=== PATIENT | male | born 1950 | race Caucasian/White ===

== ENCOUNTER 2017-10-13 09:26 | Day surgery (SDC) | payer OTHER, BC ==
[2017-10-11 13:56] VITALS: BMI 25.4
[2017-10-13] MEDS ORDERED: BUPIVACAINE HCL/PF 2.5 MG/ML - 30 ML VIAL IJ ONE (11:36)
[2017-10-13] MEDS ORDERED: MIDAZOLAM HCL 2 MG/2 ML SINGLE DOSE VIAL ONE (12:01)
[2017-10-13] MEDS ORDERED: PROPOFOL 20 ML ONE ×2 (12:09→12:49)
[2017-10-13] MEDS ORDERED: LIDOCAINE HCL 2% 100 MG/5 ML DISP.SYRIN ONE (12:11)
[2017-10-13] MEDS ORDERED: ONDANSETRON 4 MG/2 ML VIAL ONE (12:16)
[2017-10-13] MEDS ORDERED: DEXAMETHASONE SOD PHOSPHATE 4 MG/1 ML VIAL ONE (12:16)
[2017-10-13] MEDS ORDERED: HYDROmorphone HCL/PF 1 MG/ML VIAL (FOR PYXIS CHARGING ONLY) ONE ×2 (12:21→12:27)
[2017-10-13] MEDS ORDERED: ceFAZolin SODIUM 1 GM VIAL ONE (12:25)
[2017-10-13] MEDS ORDERED: THROMBIN (BOVINE) 5,000 UNIT VIAL TP ONE ×2 (12:42→12:45)
[2017-10-13] MEDS ORDERED: GELATIN, ABSORBABLE 100 EACH SPONGE TP ONE (12:42)
[2017-10-13] MEDS ORDERED: ONDANSETRON 4 MG/2 ML VIAL IVPUSH PRN (13:05)
[2017-10-13] MEDS ORDERED: oxyCODONE HCL 5 MG TABLET PO PRN (13:05)
[2017-10-13] MEDS ORDERED: LACTATED RINGERS SOLUTION 1,000 ML IV SCH (13:15)
[2017-10-13 13:57] VITALS: TEMP 97.8
[2017-10-13 14:51] VITALS: BP 116/76; PULSE 78
--- NOTE | 2017-10-13 22:58 | OP ---
DATE OF OPERATION: 10/13/2017 SURGEON: Petar Mares M.D. HOUSING MANAGEMENT OFFICER: Sandip Garcia PREOPERATIVE DIAGNOSIS: Right arm mass/hematoma, complex. POSTOPERATIVE DIAGNOSIS: Right arm mass/hematoma, complex. PROCEDURE: Irrigation and debridement of hematoma and complex mass right upper arm. FINDINGS: 1. Complex hematoma, right arm. 2. Thickened scar tissue between anterior biceps and brachialis. DESCRIPTION OF PROCEDURE: Informed consent was obtained . Right upper extremity was prepped and draped in sterile fashion. Tourniquet was placed on the upper arm but not inflated. Horizontal incision was made at the area of the anterior elbow crease. The fascia was incised, and the blunt tenotomy scissors exposed the area between the biceps and the brachialis. hematoma was evacuated through pressure. Multiple complex areas of tissue consistent with hematopoietic clot were removed as well. A bulb syringe irrigation was used greater than 2 L throughout the area. This was then packed with a iodoform gauze as well as absorbable packing material to limit bleeding. Two 3-0 Prolenes were placed on the anterior incision, and a sterile dressing was placed. A second Kike bandage was placed, and the pressure dressing removed 40 minutes after the injury; this was to provide 50% the maximum pressure to decrease the space and prevent postoperative bleeding. ADDENDUM: Postoperatively, patient's secondary Kike was removed, was found to be neurovascularly intact distally the whole time with good pulses, good blood flow by pulse oximetry. PETAR MARES M.D. [id number]
--- NOTE | 2017-10-18 14:54 | PATH ---
Surgical Pathology Report Patient Name: BRANDON ÁLVAREZ Med. Rec. #: [id number] /Age/Gender: 1950 (Age: 67) / M Account: [id number] Location: [facility] AM[facility] Taken: 10/13/2017 Received: 10/13/2017 Reported: 10/18/2017 Physicians: Petar Razo M.D. Specimen(s) Received RIG ARM HEMATOMA Clinical History Right biceps hematoma of soft tissue Final Diagnosis HEMATOMA, RIGHT ARM, INCISION AND DRAINAGE: HEMATOMA. Electronically Signed Idalmis Blankenship M.D. Gross Description Received in formalin labeled "right arm hematoma," is a 1.4 x 1.0 x 0.3 cm red-brown blood clot. The specimen is submitted in toto in one cassette. /10/16/201710/16/2017
== END 2017-10-13 14:50 | disposition home or self-care (01) ==
LOC: FASU 09:26
PROVIDERS: ATTEND Orthopaedic Surgery
PROC: 0J9D0ZZ Drainage of Right Upper Arm Subcutaneous Tissue and Fascia, Open Approach (ICD-10-PCS; principal; 2017-10-13 12:24)
DX: M79.81 Nontraumatic hematoma of soft tissue (principal); R22.31 Localized swelling, mass and lump, right upper limb
CPT/HCPCS: 87070; 87075; 87205; 88302-TC; 94760

== ENCOUNTER 2019-04-05 14:20 | Observation (INO) | payer OTHER, BC ==
[2019-04-05 14:51] VITALS: BMI 21.9
--- NOTE | 2019-04-05 15:30 | PDOC ---
History of Present Illness - General Chief Complaint: Lightheaded Stated Complaint: DIZZINESS Time Seen by Provider: 04/05/19 14:33 History Source: Patient, Spouse - History of Present Illness Initial Comments: 04/05/19 15:28 68yM w PMHx R arm sarcoma s/p amputation, lung metastasis off chemotherapy, HTN presenting w perioral cyanosis and tremors. 10am this morning took 0.25mL hydromorphone. 10:30a complained of leg weakness, laid on couch for a nap. No head trauma/fall. 11:30a noted pt having perioral cyanosis, 10sec episode of mouth, trunk, and R arm tremors. No tongue biting. Pt was partially conscious during shaking episode. EMS measured SBP as 70 going up to 90 en route to ED. Currently in ED pt still has mouth and R arm tremors. is health care proxy. Pt stopped chemo yesterday, started pallative care today. Denies fever, headache, nausea/vomiting, SOB, chest/AB pain, urinary/bowel mvmt changes. Pt is DNI, no CVC, only short resuscitation. is health care proxy. 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, lung and arm) Cardiac Disorders: No CVA: No COPD: No CHF: No Dementia: No Diabetes: No GI Disorders: Yes (HIATAL HERNIA) Disorders: Yes (BPH) HTN: Yes Hypercholesterolemia: No Liver Disease: No Seizures: No Thyroid Disease: No - Surgical History Abdominal Surgery: No Appendectomy: No Cardiac Surgery: No Cholecystectomy: No Lung Surgery: No Neurologic Surgery: No Orthopedic Surgery: No - Psycho Social/Smoking Cessation Hx Smoking History: Never smoked Have you smoked in the past 12 months: No Hx Alcohol Use: Yes (SOCIALLY) Drug/Substance Use Hx: No Substance Use Type: Alcohol Hx Substance Use Treatment: No Review of Systems - Review of Systems Constitutional: Yes: Malaise. No: Chills, Fever HEENTM: No: Recent change in vision, Nose Pain, Throat Pain Respiratory: No: Cough, Shortness of Breath Cardiac (ROS): No: Chest Pain, Palpitations, Chest Tightness ABD/GI: No: Abdominal Distended, Constipated, Diarrhea, Nausea, Vomiting : No: Burning, Dysuria, Frequency Musculoskeletal: No: Back Pain, Muscle Pain Integumentary: No: Bruising, Dryness, Erythema Neurological: Yes: Weakness. No: Headache, Seizure, Tingling Psychiatric: No: Anxiety, Depression Endocrine: No: Excessive Sweating, Flushing, Intolerance to Cold, Intolerance to Heat Hematologic/Lymphatic: No: Anemia, Blood Clots *Physical Exam - Vital Signs Last Vital Signs Temp Pulse Resp BP Pulse Ox 97.7 F 77 16 112/72 100 04/05/19 14:25 04/05/19 14:25 04/05/19 14:25 04/05/19 14:25 04/05/19 14:25 - Physical Exam General Appearance: Yes: Nourished, Appropriately Dressed. No: Apparent Distress HEENT: positive: EOMI, Normal Voice, Hearing Grossly Normal. negative: AMELIA ( 2mm stephane constricted pupils), Scleral Icterus (R), Scleral Icterus (L), Nasal Congestion, Rhinorrhea Respiratory/Chest: positive: Decreased Breath Sounds (R>L). negative: Chest Tender, Respiratory Distress, Accessory Muscle Use, Crackles, Rales, Rhonchi, Stridor, Wheezing Cardiovascular: positive: Regular Rhythm, Regular Rate, S1, S2. negative: Edema , Murmur Gastrointestinal/Abdominal: positive: Normal Bowel Sounds, Flat, Soft. negative : Tender, Organomegaly Extremity: positive: Other (Above elbow R amputation) Integumentary: positive: Pale, Other (perioral cyanosis). negative: Rash, Ecchymosis Neurologic: positive: turbine mechanic II-XII NML intact, Fully Oriented, Alert, Normal Mood/ Affect, Normal Response, Motor Strength 5/5 (4/5 stephane dorsi/plantaflexion), Respond to painful stimul, Responsive. negative: Facial Droop, Numbness, Sensory Deficit, Confused, Disoriented ED Treatment Course - LABORATORY CBC & Chemistry Diagram: 04/05/19 15:50 04/05/19 15:50 - RADIOLOGY Radiology Studies Ordered: Category Date Time Status HEAD CT WITHOUT CONTRAST [CT] Stat CT Scan 04/05/19 15:22 Ordered Medical Decision Making - Medical Decision Making 04/05/19 15:52 CBC CMP trop cardiac monitoring EKG NSR, HR 68, QTc 435, no ST changes Head CT shows no acute pathology, moderate periventricular and subcortical white matter, stephane mucous 1L NS plt 125 --- 68yM w PMHx R arm sarcoma s/p amputation, lung metastasis off chemotherapy, HTN presenting w perioral cyanosis, tremors, syncope likely d/t opioid overdose ( miosis, weakness, perioral cyanosis after hydromorphone) vs medication side reaction. Low concern for ACS (neg trop, NSR EKG) vs CVA (no focal neuro deficits, no acute pathology on HCT) vs seizure (pt partially conscious during tremor episode, questionable post-ictal). O2sat wnl on RA. Given 1L NS. Admitted to tele/obvs Dr Ware for syncope possibly 2/2 opioid overdose Discharge - Discharge Information Problems reviewed: Yes Clinical Impression/Diagnosis: Opioid overdose Qualifiers: Encounter type: initial encounter Injury intent: accidental or unintentional Qualified Code(s): T40.2X1A - Poisoning by other opioids, accidental ( unintentional), initial encounter Syncope Qualifiers: Syncope type: unspecified Qualified Code(s): R55 - Syncope and collapse Condition: Stable - Follow up/Referral Referrals: James Longo [Primary Care Provider] - - Patient Discharge Instructions - Post Discharge Activity
[2019-04-05 16:27] LABS: BASO % 0.2 % (0-2.0); EOS % 0.8 % (0-4.5); HEMATOCRIT 42.9 % (35.4-49); LYMPH % 9.3 % (8-40); MCH 35.9 pg (25.7-33.7); MEAN CELL VOLUME 102.5 fl (80-96); MEAN PLT VOLUME 8.5 fl (7.5-11.1); MONO % 10.6 % (3.8-10.2); NEUT % 79.1 % (42.8-82.8); PLATELET COUNT 125 K/MM3 (134-434); RBC 4.18 M/mm3 (4.00-5.60); WHITE BLOOD COUNT 6.1 K/mm3 (4.0-10.0)
[2019-04-05 16:57] LABS: ALK PHOS 83 U/L (45-117); ANION GAP 7 MMOL/L (8-16); BILIRUBIN,TOTAL 0.9 mg/dL (0.2-1); BLOOD UREA NITROGEN 22.8 mg/dL (7-18); CALCIUM 8.9 mg/dL (8.5-10.1); CHLORIDE 102 mmol/L (98-107); CO2 29 mmol/L (21-32); CREATININE 0.9 mg/dL (0.55-1.3); GLUCOSE,RANDOM 100 mg/dL (74-106); MAGNESIUM 2.1 mg/dL (1.8-2.4); POTASSIUM 4.1 mmol/L (3.5-5.1); SGOT/AST 53 U/L (15-37); SGPT/ALT 50 U/L (13-61); SODIUM 138 mmol/L (136-145); TOT PROT 6.8 g/dl (6.4-8.2)
[2019-04-05] MEDS ORDERED: SODIUM CHLORIDE 0.9% 500 ML INFUS.BAG IV ONE (16:57)
--- NOTE | 2019-04-05 17:04 | PDOC ---
Documentation entered by Abdirahman Morrell SCRIBE, acting as scribe for Aleksey Max MD. Aleksey Max MD: This documentation has been prepared by the Petros leon Xhesika, SCRIBE, under my direction and personally reviewed by me in its entirety. I confirm that the documentation accurately reflects all work, treatment, procedures, and medical decision making performed by me. Attending Attestation - Resident Resident Name: KevinLokesh - ED Attending Attestation I have performed the following: I have examined & evaluated the patient, The case was reviewed & discussed with the resident, I agree w/resident's findings & plan, Exceptions are as noted - HPI HPI: 04/05/19 16:36 The patient is a 68 old male, with a significant past medical history of R arm sarcoma s/p amputation, lung metastasis off chemotherapy and HTN who presents to the ED with shaking activity and tremors [employer]. at bedside notes the patient took 0.25mL hydromorphone this morning and shortly after the patient was in the bathroom brushing his teeth when he felt sudden onset of leg weakness , lost his balance and started shifting to one side. notes she sat the patient on the couch, patient fell asleep, and while sleeping, his skin color turned white, his blood pressure dropped and his R arm started trembling. notes she called pts PCP at [facility] and was told the patient is having a reaction to his medication and to decrease his medication dose. Pt notes he is still endorsing some R arm trembling and mouth quivering. The patient denies chest pain, shortness of breath, headache and dizziness. Denies fever, chills, cough, nausea, vomiting, diarrhea and constipation. Denies dysuria, frequency, urgency and hematuria. Allergies:, NKDA Social Hx: Denies current smoking, drinking, or other substance usage. - Physicial Exam PE: 04/05/19 16:38 Vitals: Triage Vital signs reviewed General Appearance: no acute distress, well nourished well developed, Head: Atraumatic, normocephalic Throat: Posterior oropharynx without erythema, mucous membranes moist. + lip twitching. Neck: Supple;No Nuchal rigidity Chest Wall: Nontender Cardiac: +systolic murmur. Regular rate and rhythm, no rubs, no gallops, Lungs: Clear to auscultation bilateral, good air movement bilaterally, Extremities: + R arm amputation. no cyanosis, clubbing, or edema Skin: Warm and dry, no rashes or lesions, no petechiae - Medical Decision Making 04/05/19 17:50 History and examination consistent with syncope versus seizure Possible medication adverse reaction complicated by syncopal episode but given twitching patient will require observation overnight with neurology consultation for further management. Heart Score/ECG Review - ECG Impressions Comment:: 04/05/19 17:51 EKG performed at 1433 demonstrates normal sinus rhythm normal axis ventricular rate [address] elevations no T wave inversions incomplete right bundle branch block Interpreted by me.
--- NOTE | 2019-04-05 19:54 | HP ---
CHIEF COMPLAINT: presyncope/leg weakness PCP: Dr. Rick (palliative care) - [phone] HISTORY OF PRESENT ILLNESS: 68M w/ pmhx of R arm sarcoma (s/p RUE amputation) with lung mets (previously treated with RT, oral CT - last dose yesterday), HTN, presents to the ED for b/ l leg weakness. at bedside during encounter. Pt has had a year long hx of cancer treatment after which his most recent oral chemotherapy caused him to feel very weak and sick. As a result, he decided yesterday to be placed on palliative care and was given a new medication regimen today. Pt was prescribed Hydromorphone 0.5 mL, but took 0.25 ml. 2 hours later, while brushing his teeth , pt started feeling b/l leg weakness and tremors, R > L, and became too weak to hold himself up. was present during entire episode and was able to hold pt up. Pt did admit to some dizziness, but denied associated nausea/vomiting, chest pain, sob, loss of consciousness, seizure activity or post-ictal state. Denies any fall. Pt also has R sided facial flushing. ER course was notable for: (1) VS wnl, BUN 22.8, trops neg x1 (2) NS x1L (3) EKG showed NSR, no ST-T changes, flattening of T waves Recent Travel: Denies PAST MEDICAL HISTORY: R arm sarcoma w/ lung mets HTN PAST SURGICAL HISTORY: RUE amputation radical prostatectomy Family History: Father- Bladder ca Mother- HTN No hx of stroke Social History: Smoking: Denies Alcohol: Social drinker Drugs: Denies Retired, former recreational therapist Allergies No Known Drug Allergies Allergy (Verified 04/05/19 14:51) HOME MEDICATIONS: Home Medications Medication Instructions Recorded Lisinopril/Hydrochlorothiazide 1 each PO DAILY 10/11/17 [Lisinopril-Hctz 10-12.5 mg Tab] Gabapentin 300 mg PO BID 04/05/19 HYDROmorphone HCL [Hydromorphone 0.5 ml PO QID 04/05/19 HCl] Olanzapine [Olanzapine Odt] 5 mg PO BID 04/05/19 Sennosides [Senna] 8.6 mg PO HS 04/05/19 clonazePAM [Klonopin -] 0.5 mg PO HS 04/05/19 REVIEW OF SYSTEMS CONSTITUTIONAL: Absent: fever, chills, diaphoresis, generalized weakness, malaise, loss of appetite, weight change HEENT: R sided facial flushing Absent: rhinorrhea, nasal congestion, throat pain, throat swelling, difficulty swallowing, mouth swelling, ear pain, eye pain, visual changes CARDIOVASCULAR: Absent: chest pain, syncope, palpitations, irregular heart rate, lightheadedness , peripheral edema RESPIRATORY: Absent: cough, shortness of breath, dyspnea with exertion, orthopnea, wheezing, stridor, hemoptysis GASTROINTESTINAL: Absent: abdominal pain, abdominal distension, nausea, vomiting, diarrhea, constipation, melena, hematochezia GENITOURINARY: difficulty urinating Absent: dysuria, frequency, urgency, hesitancy, hematuria, flank pain, genital pain MUSCULOSKELETAL: b/l LE weakness Absent: myalgia, arthralgia, joint swelling, back pain, neck pain SKIN: Absent: rash, itching, pallor HEMATOLOGIC/IMMUNOLOGIC: Absent: easy bleeding, easy bruising, lymphadenopathy, frequent infections ENDOCRINE: Absent: unexplained weight gain, unexplained weight loss, heat intolerance, cold intolerance NEUROLOGIC: dizziness Absent: headache, focal weakness or paresthesias, dizziness, unsteady gait, seizure, mental status changes, bladder or bowel incontinence PSYCHIATRIC: Absent: anxiety, depression, suicidal or homicidal ideation, hallucinations. PHYSICAL EXAMINATION Vital Signs - 24 hr 04/05/19 14:25 Temperature 97.7 F Pulse Rate 77 Respiratory 16 Rate Blood Pressure 112/72 O2 Sat by Pulse 100 Oximetry (%) GENERAL: Pleasant, male. NAD. AAOx3. HEENT: AT/NC. EOMI. No facial droop. R sided facial flushing, no warmth. Airway patent. NECK: Normal range of motion, supple without lymphadenopathy, JVD, or masses. LUNGS: CTA B/L. No wheezes/rales noted. Symmetric chest rise. HEART: RRR. Normal S1, S2. No murmurs noted. ABDOMEN: Soft, nontender, not distended, normoactive bowel sounds, no guarding, no rebound, no masses. No hepatomegaly or splenomegaly. MUSCULOSKELETAL: 5/5 muscle strength in LUE and b/l LE UPPER EXTREMITIES: R arm amputation. 2+ L sided radial pulse. Uses 1 crutch to ambulate. LOWER EXTREMITIES: 2+ pulses, warm, well-perfused. No calf tenderness. No peripheral edema. 5/5 muscle strength in b/l hip and knee flexion and extension. NEUROLOGICAL: Cranial nerves II-XII intact. Normal speech. Answers all questions appropriately. PSYCHIATRIC: Cooperative. Good eye contact. Appropriate mood and affect. SKIN: Warm, dry, normal turgor, no rashes or lesions noted, normal capillary refill. Laboratory Results - last 24 hr 04/05/19 04/05/19 15:50 15:50 WBC 6.1 RBC 4.18 Hgb 15.0 Hct 42.9 MCV 102.5 H MCH 35.9 H MCHC 35.0 RDW 18.0 H Plt Count 125 L MPV 8.5 Absolute Neuts (auto) 4.8 Neutrophils % 79.1 Lymphocytes % 9.3 Monocytes % 10.6 H Eosinophils % 0.8 Basophils % 0.2 Nucleated RBC % 0 Sodium 138 Potassium 4.1 Chloride 102 Carbon Dioxide 29 Anion Gap 7 L BUN 22.8 H Creatinine 0.9 Est GFR (CKD-EPI)AfAm 102.79 Est GFR (CKD-EPI)NonAf 88.69 Random Glucose 100 Calcium 8.9 Magnesium 2.1 Total Bilirubin 0.9 AST 53 H ALT 50 Alkaline Phosphatase 83 Creatine Kinase 128 Troponin I < 0.02 Total Protein 6.8 Albumin 4.0 ASSESSMENT/PLAN: 68M w/ pmhx of R arm sarcoma (s/p RUE amputation) with lung mets (previously treated with RT, oral CT - last dose yesterday), HTN, presents to the ED for b/ l leg weakness. #B/L LE weakness; 2/2 adverse drug rxn vs. near syncope vs. ? seizure Imaging Head CT showed no acute IC pathology. Mod to marked periventricular and subcortical white matter hypodensity; may be advanced microvascular ischemic gliosis or nonspecific white matter injury, probably chronic. Small amount of fluid/mucosal thickening seen within mastoid air cells b/l. -Pt's symptoms may likely be due to recent administration of Hydromorphone as known effects include facial flushing as well as FILE SYSTEM INSTALLER disturbances (including equilibrium disturbance, abnormal gait, etc). Unlikely syncope as pt did not endorse loss of consciousness, however will need to rule out possible cardiac etiology for presyncopal episode. Pt also admits unexplained worsening tremors in his lower extremities R > L, so will r/o focal seizure however pt has no hx of seizure or other associated symptoms (tongue biting, urinary/bowel incontinence, etc). -Will hold all opioids for now -Orthostatics ordered -Echo ordered -Fall/seizure precautions -PT eval -Neuro consulted for possible seizure -Avoid hydromorphone; Will need close outpatient follow up with palliative care physician to discuss different palliative care regimen -Tylenol PRN for pain #Mild Thrombocytopenia; ? side effect of recent chemotherapy. Will order abd u/ s to r/o splenomegaly. #HTN; Currently normotensive. Hold home meds (Lisinopril/HCTZ) for now in setting of near syncopal episode. #Prophylaxis DVT: SQH #FEN -(gentle IV hydration) NS @ 50 -recheck lytes in AM -sodium-controlled diet Code status -DNI. Per ED, it was explained to pt and pt's (HCP) regarding futility of using resuscitative measures without intubation, however agreed to keep pt DNI with "soft resuscitative measures." Dispo -admit to tele obs Visit type - Emergency Visit Emergency Visit: Yes ED Registration Date: 04/05/19 Care time: The patient presented to the Emergency Department on the above date and was hospitalized for further evaluation of their emergent condition. - New Patient This patient is new to me today: Yes Date on this admission: 04/06/19 - Critical Care Critical Care patient: No ATTENDING PHYSICIAN STATEMENT I saw and evaluated the patient. I reviewed the resident's note and discussed the case with the resident. I agree with the resident's findings and plan as documented. SUBJECTIVE: OBJECTIVE: ASSESSMENT AND PLAN:
--- NOTE | 2019-04-05 20:20 | PN ---
Teaching Attending Note Name of Resident: Faustina Murray ATTENDING PHYSICIAN STATEMENT I saw and evaluated the patient. I reviewed the resident's note and discussed the case with the resident. I agree with the resident's findings and plan as documented. SUBJECTIVE: 68 old male, with a significant past medical history of R arm sarcoma s/p amputation, lung metastasis off chemotherapy and HTN Presents complaining of shaking activity and tremors. at bedside stated they took 0.25 mg of hydromorphone on 04/05/2019 in the morning and shortly after patient was experiencing bilateral lower extremity weakness, loss of balance,Tremors in left face and left upper extremity possible syncope episode. Lasted only several seconds and was witnessed by his . No history of seizures. OBJECTIVE: Last Vital Signs Temp Pulse Resp BP Pulse Ox 97.7 F 86 18 106/78 94 L 04/05/19 14:25 04/05/19 20:35 04/05/19 20:35 04/05/19 20:35 04/05/19 20:35 GENERAL: Well developed, well nourished. Awake and alert. No acute distress. HEENT: Normocephalic, atraumatic. PERRLA, EOMI. No conjunctival pallor. Sclera are non- icteric. Moist mucous membranes. Oropharynx is clear. NECK: Supple. Full ROM. No JVD. Carotid pulses 2+ and symmetric, without bruits. No thyromegaly. No lymphadenopathy. CARDIOVASCULAR: Regular rate and rhythm. No murmurs, rubs, or gallops. Distal pulses are 2+ and symmetric. PULMONARY: No evidence of respiratory distress. Lungs clear to auscultation bilaterally. No wheezing, rales or rhonchi. ABDOMINAL: Soft. Non-tender. Non-distended. No rebound or guarding. No organomegaly. Normoactive bowel sounds. MUSCULOSKELETAL Normal range of motion at all joints. No bony deformities or tenderness. No CVA tenderness. EXTREMITIES: Right arm status post amputation at mid shoulder level SKIN: Warm and dry. Normal capillary refill. No rashes. No jaundice. PSYCHIATRIC: Cooperative. Good eye contact. Appropriate mood and affect. Abnormal Lab Results 04/05/19 04/05/19 15:50 15:50 MCV 102.5 H MCH 35.9 H RDW 18.0 H Plt Count 125 L Monocytes % 10.6 H Anion Gap 7 L BUN 22.8 H AST 53 H Imaging studies reviewed Head CT reviewed and was negative for any acute intracranial pathology ASSESSMENT AND PLAN: 68-year-old male with possible adverse drug reaction to hydromorphone versus syncope versus Seizure episode. History of tremors and "shaking activity" suspicious for possible seizure activity. Telemetry abs Check orthostatics Monitor vital signs closely Echo Neurology evaluation for possible seizure Avoid hydromorphone Fall precautions and bedrest Physical therapy evaluation DVT prophylaxis with heparin subcutaneously #Mild thrombocytopenia Ultrasound of spleen to rule out splenomegaly Monitor CBC closely
[2019-04-05] MEDS ORDERED: ACETAMINOPHEN 325 MG TABLET (FP) PO PRN (23:31)
[2019-04-06] MEDS: HEPARIN NA (PORCINE) 5,000 UNITS/ML 1ML VIAL SQ SCH ×4 (00:38→21:30)
[2019-04-06] MEDS: SODIUM CHLORIDE 1,000 ML IV SCH ×2 (03:12→13:29)
[2019-04-06] MEDS ORDERED: MELATONIN 5 MG TABLETS ONE (03:14)
[2019-04-06 06:37] LABS: HEMATOCRIT 36.8 % (35.4-49); MCH 35.9 pg (25.7-33.7); MCHC 35.4 g/dl (32.0-35.9); MEAN CELL VOLUME 101.3 fl (80-96); MEAN PLT VOLUME 7.7 fl (7.5-11.1); PLATELET COUNT 82 K/MM3 (134-434); RBC 3.63 M/mm3 (4.00-5.60); RDW 17.8 % (11.9-15.9); WHITE BLOOD COUNT 3.7 K/mm3 (4.0-10.0)
[2019-04-06 06:54] LABS: ALBUMIN 3.1 g/dl (3.4-5.0); BILIRUBIN,TOTAL 0.7 mg/dL (0.2-1); CALCIUM 7.8 mg/dL (8.5-10.1); CREATININE 0.8 mg/dL (0.55-1.3); POTASSIUM 3.1 mmol/L (3.5-5.1); TOT PROT 5.5 g/dl (6.4-8.2)
[2019-04-06] MEDS ORDERED: ENOXAPARIN NA (PORCINE) 40 MG/0.4 ML DISP.SYRIN SQ SCH (10:00)
--- NOTE | 2019-04-06 10:22 | EKG ---
Test Reason : Blood Pressure : / mmHG Vent. Rate : 068 BPM Atrial Rate : 068 BPM P-R Int : 142 ms QRS Dur : 084 ms QT Int : 410 ms P-R-T Axes : 050 014 012 degrees QTc Int : 435 ms NORMAL SINUS RHYTHM NONSPECIFIC T WAVE ABNORMALITY ABNORMAL ECG NO PREVIOUS ECGS AVAILABLE Confirmed by MILENA FELICIANO MD ([id number]) on 04/06/2019 10:21:50 AM Referred By: Confirmed By:MILENA FELICIANO MD
[2019-04-06] MEDS: POTASSIUM CHLORIDE TABS 20 MEQ TABLET.ER (FP) PO SCH ×2 (11:06→21:27)
--- NOTE | 2019-04-06 11:09 | CONSULT ---
Consult - text type - Consultation Consultation Note: [facility] *LIVE* Neurology CHIEF COMPLAINT: presyncope/leg weakness PCP: Dr. 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 at bedside during encounter. Pt has had a year long hx of cancer treatment after which his most recent oral chemotherapy caused him to feel very weak and sick. As a result, he decided yesterday to be placed on palliative care and was given a new medication regimen today. Pt was prescribed Hydromorphone 0.5 mL, but took 0.25 ml. 2 hours later, while brushing his teeth, pt started feeling b/l leg weakness and tremors, R > L, and became too weak to hold himself up. was present during entire episode and was able to hold pt up. Pt did admit to some dizziness, but denied associated nausea/vomiting, chest pain, sob, loss of consciousness, seizure activity or post-ictal state. Denies any fall. Pt also has R sided facial flushing. Patient BUN slightly elevated 22.8, EKG normal sinus rhythm. Head CT completed with moderate to marked periventricular and subcortical white matter and small amount of fluid mucosal thickening within the mastoid air cells bilaterally. Patient without focal deficits and therefore discontinued MRI brain. Discussed with at bedside and hospitalist. EEG may be of benefit but not available on weekend, therefore provided office information to expedite completion as outpatient. Neurologically appears at baseline and hydromorphone first use likely etiology to presentation. Recent Travel: Denies PAST MEDICAL HISTORY: R arm sarcoma w/ lung mets HTN PAST SURGICAL HISTORY: RUE amputation radical prostatectomy Family History: Father- Bladder ca Mother- HTN No hx of stroke Social History: Smoking: Denies Alcohol: Social drinker Drugs: Denies Retired, former recreational therapist Allergies No Known Drug Allergies Allergy (Verified 04/05/19 14:51) HOME MEDICATIONS: Ambulatory Orders Lisinopril/Hydrochlorothiazide [Lisinopril-Hctz 10-12.5 mg Tab] 1 each PO DAILY 10/11/17 Gabapentin 300 mg PO BID 04/05/19 HYDROmorphone HCL [Hydromorphone HCl] 0.5 ml PO QID 04/05/19 Olanzapine [Olanzapine Odt] 5 mg PO BID 04/05/19 Sennosides [Senna] 8.6 mg PO 04/05/19 clonazePAM [Klonopin -] 0.5 mg PO 04/05/19 Active Medications Acetaminophen (Tylenol -) 650 mg PO Q6H PRN PRN Reason: PAIN LEVEL 1-5 Heparin Sodium (Porcine) (Heparin -) 5,000 unit SQ TID [facility] Last Admin: 04/06/19 06:28 Dose: 5,000 unit Sodium Chloride (Normal Saline -) 1,000 mls @ 50 mls/hr IV ASDIR [facility] Last Admin: 04/06/19 03:12 Dose: 50 mls/hr Melatonin (Melatonin) 10 mg PO [facility] Potassium Chloride (K-Dur -) 40 meq PO BID [facility] Stop: 04/06/19 22:01 REVIEW OF SYSTEMS CONSTITUTIONAL: Absent: fever, chills, diaphoresis, generalized weakness, malaise, loss of appetite, weight change HEENT: R sided facial flushing Absent: rhinorrhea, nasal congestion, throat pain, throat swelling, difficulty swallowing, mouth swelling, ear pain, eye pain, visual changes CARDIOVASCULAR: Absent: chest pain, syncope, palpitations, irregular heart rate, lightheadedness , peripheral edema RESPIRATORY: Absent: cough, shortness of breath, dyspnea with exertion, orthopnea, wheezing, stridor, hemoptysis GASTROINTESTINAL: Absent: abdominal pain, abdominal distension, nausea, vomiting, diarrhea, constipation, melena, hematochezia GENITOURINARY: difficulty urinating Absent: dysuria, frequency, urgency, hesitancy, hematuria, flank pain, genital pain MUSCULOSKELETAL: b/l LE weakness Absent: myalgia, arthralgia, joint swelling, back pain, neck pain SKIN: Absent: rash, itching, pallor HEMATOLOGIC/IMMUNOLOGIC: Absent: easy bleeding, easy bruising, lymphadenopathy, frequent infections ENDOCRINE: Absent: unexplained weight gain, unexplained weight loss, heat intolerance, cold intolerance NEUROLOGIC: dizziness Absent: headache, focal weakness or paresthesias, dizziness, unsteady gait, seizure, mental status changes, bladder or bowel incontinence PSYCHIATRIC: Absent: anxiety, depression, suicidal or homicidal ideation, hallucinations. PHYSICAL EXAMINATION Vital Signs Period Temp Pulse Resp BP Sys/Schmidt Pulse Ox Last 24 Hr 97.7 F 77-86 16-18 106-112/72-78 94-100 GENERAL: Pleasant, male. NAD. AAOx3. HEENT: AT/NC. EOMI. No facial droop. R sided facial flushing, no warmth. Airway patent. NECK: Normal range of motion, supple without lymphadenopathy, JVD, or masses. LUNGS: CTA B/L. No wheezes/rales noted. Symmetric chest rise. HEART: RRR. Normal S1, S2. No murmurs noted. ABDOMEN: Soft, nontender, not distended, normoactive bowel sounds, no guarding, no rebound, no masses. No hepatomegaly or splenomegaly. MUSCULOSKELETAL: 5/5 muscle strength in LUE and b/l LE UPPER EXTREMITIES: R arm amputation. 2+ L sided radial pulse. Uses 1 crutch to ambulate. LOWER EXTREMITIES: 2+ pulses, warm, well-perfused. No calf tenderness. No peripheral edema. 5/5 muscle strength in b/l hip and knee flexion and extension. NEUROLOGICAL: Cranial nerves II-XII intact. Normal speech. Answers all questions appropriately. Moves all ext, RUE amputation, sensory intact PSYCHIATRIC: Cooperative. Good eye contact. Appropriate mood and affect. SKIN: Warm, dry, normal turgor, no rashes or lesions noted, normal capillary refill. CBCD WBC 3.7 K/mm3 (4.0-10.0) L 04/06/19 05:53 RBC 3.63 M/mm3 (4.00-5.60) L 04/06/19 05:53 Hgb 13.0 GM/dL (11.7-16.9) 04/06/19 05:53 Hct 36.8 % (35.4-49) 04/06/19 05:53 MCV 101.3 fl (80-96) H 04/06/19 05:53 MCHC 35.4 g/dl (32.0-35.9) 04/06/19 05:53 RDW 17.8 % (11.9-15.9) H 04/06/19 05:53 Plt Count 82 K/MM3 (134-434) L D 04/06/19 05:53 MPV 7.7 fl (7.5-11.1) 04/06/19 05:53 CMP Sodium 145 mmol/L (136-145) 04/06/19 05:53 Potassium 3.1 mmol/L (3.5-5.1) L 04/06/19 05:53 Chloride 111 mmol/L (98-107) H 04/06/19 05:53 Carbon Dioxide 26 mmol/L (21-32) 04/06/19 05:53 Anion Gap 8 MMOL/L (8-16) 04/06/19 05:53 BUN 16.0 mg/dL (7-18) 04/06/19 05:53 Creatinine 0.8 mg/dL (0.55-1.3) 04/06/19 05:53 Random Glucose 81 mg/dL (74-106) 04/06/19 05:53 Calcium 7.8 mg/dL (8.5-10.1) L 04/06/19 05:53 Total Bilirubin 0.7 mg/dL (0.2-1) 04/06/19 05:53 AST 24 U/L (15-37) 04/06/19 05:53 ALT 37 U/L (13-61) 04/06/19 05:53 Alkaline Phosphatase 68 U/L (45-117) 04/06/19 05:53 Total Protein 5.5 g/dl (6.4-8.2) L 04/06/19 05:53 Albumin 3.1 g/dl (3.4-5.0) L 04/06/19 05:53 CARDIAC ENZYMES Creatine Kinase 128 U/L (26-308) 04/05/19 15:50 Troponin I < 0.02 ng/ml (0.00-0.05) 04/05/19 15:50 ASSESSMENT/PLAN: 68M w/ 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 at bedside during encounter. Pt has had a year long hx of cancer treatment after which his most recent oral chemotherapy caused him to feel very weak and sick. As a result, he decided yesterday to be placed on palliative care and was given a new medication regimen today. Pt was prescribed Hydromorphone 0.5 mL, but took 0.25 ml. 2 hours later, while brushing his teeth, pt started feeling b/l leg weakness and tremors, R > L, and became too weak to hold himself up. was present during entire episode and was able to hold pt up. Pt did admit to some dizziness, but denied associated nausea/vomiting, chest pain, sob, loss of consciousness, seizure activity or post-ictal state. Denies any fall. Pt also has R sided facial flushing. Patient BUN slightly elevated 22.8, EKG normal sinus rhythm. Head CT completed with moderate to marked periventricular and subcortical white matter and small amount of fluid mucosal thickening within the mastoid air cells bilaterally. Patient without focal deficits and therefore discontinued MRI brain. Discussed with at bedside and hospitalist. EEG may be of benefit but not available on weekend, therefore provided office information to expedite completion as outpatient. Neurologically appears at baseline and hydromorphone first use likely etiology to presentation. Cardiac work up as per primary. Monitor BP, maintain normotensive range. Adequate hydration recommended. Caution with opioid medications and use. Follow up with oncologist. DVT ppx.
[2019-04-06] MEDS ORDERED: POTASSIUM CHLORIDE TABS 20 MEQ TABLET.ER (FP) PO ONE (12:01)
[2019-04-06] MEDS: OLANZAPINE 5 MG PO SCH (12:42)
[2019-04-06] MEDS: guaiFENesin 200 MG/10 ML 10 ML UNIT-DOSE CUPS PO PRN (13:29)
--- NOTE | 2019-04-06 14:27 | PN ---
Progress Note (short form) - Note Progress Note: SUBJECTIVE: Feels well - no headache/visual disturbance/lightheadedness. No limb numbness/tingling/weakness. No fever/chills. OBJECTIVE: Afebrile, Hemodynamically Stable. Last Vital Signs Temp Pulse Resp BP Pulse Ox 97.7 F 73 18 126/83 95 04/06/19 13:49 04/06/19 13:49 04/06/19 13:49 04/06/19 13:49 04/06/19 13:49 HEENT- Atramatic, Normocephalic. Heart - S1, S2, RRR Lungs - clear to sucultation Abdomen - Soft, non-tender. Bowel Sounds normal. Extremities - RUE amputation. No LE edema/calf tenderness. Neuro - AAO x 3. Tone/Power normal LUE and bilateral LEs. Laboratory Results - last 24 hr 04/05/19 04/05/19 04/06/19 15:50 15:50 05:53 WBC 6.1 3.7 L RBC 4.18 3.63 L Hgb 15.0 13.0 Hct 42.9 36.8 MCV 102.5 H 101.3 H MCH 35.9 H 35.9 H MCHC 35.0 35.4 RDW 18.0 H 17.8 H Plt Count 125 L 82 L D MPV 8.5 7.7 Absolute Neuts (auto) 4.8 Neutrophils % 79.1 Lymphocytes % 9.3 Monocytes % 10.6 H Eosinophils % 0.8 Basophils % 0.2 Nucleated RBC % 0 Sodium 138 Potassium 4.1 Chloride 102 Carbon Dioxide 29 Anion Gap 7 L BUN 22.8 H Creatinine 0.9 Est GFR (CKD-EPI)AfAm 102.79 Est GFR (CKD-EPI)NonAf 88.69 Random Glucose 100 Calcium 8.9 Magnesium 2.1 Total Bilirubin 0.9 AST 53 H ALT 50 Alkaline Phosphatase 83 Creatine Kinase 128 Troponin I < 0.02 Total Protein 6.8 Albumin 4.0 04/06/19 05:53 WBC RBC Hgb Hct MCV MCH MCHC RDW Plt Count MPV Absolute Neuts (auto) Neutrophils % Lymphocytes % Monocytes % Eosinophils % Basophils % Nucleated RBC % Sodium 145 Potassium 3.1 L Chloride 111 H Carbon Dioxide 26 Anion Gap 8 BUN 16.0 Creatinine 0.8 Est GFR (CKD-EPI)AfAm 107.89 Est GFR (CKD-EPI)NonAf 93.09 Random Glucose 81 Calcium 7.8 L Magnesium Total Bilirubin 0.7 AST 24 ALT 37 Alkaline Phosphatase 68 Creatine Kinase Troponin I Total Protein 5.5 L Albumin 3.1 L Current Medications Generic Name Dose Route Start Last Admin Trade Name Freq PRN Reason Stop Dose Admin Acetaminophen 650 mg 04/05/19 23:31 04/06/19 13:41 Tylenol - PO 650 mg Q6H PRN Administration PAIN LEVEL 1-5 Clonazepam 0.5 mg 04/06/19 22:00 Klonopin - PO HS J[facility] Gabapentin 300 mg 04/06/19 22:00 Neurontin - PO BID J[facility] Guaifenesin 10 ml 04/06/19 11:46 04/06/19 13:29 Robitussin - PO 10 ml Q8H PRN Administration COUGH Heparin Sodium (Porcine) 5,000 unit 04/05/19 23:15 04/06/19 13:29 Heparin - SQ 5,000 unit TID JUL[facility]US Administration Hydrochlorothiazide 12.5 mg 04/07/19 10:00 Hctz - PO DAILY [facility] Sodium Chloride 1,000 mls @ 50 mls/hr 04/05/19 23:45 04/06/19 13:29 Normal Saline - IV 50 mls/hr ASDIR [facility] Administration Lisinopril 10 mg 04/07/19 10:00 Prinivil PO DAILY [facility] Melatonin 10 mg 04/06/19 22:00 Melatonin PO HS [facility] Non-Formulary Medication 5 mg 04/06/19 12:00 04/06/19 12:42 Olanzapine [Olanzapine Odt] PO 5 mg BID [facility] Administration Potassium Chloride 40 meq 04/06/19 10:00 04/06/19 11:06 K-Dur - PO 04/06/19 22:01 40 meq BID [facility] Administration Senna 1 tab 04/06/19 22:00 Senna - PO HS [facility] Home Medications Medication Instructions Recorded Lisinopril/Hydrochlorothiazide 1 each PO DAILY 10/11/17 [Lisinopril-Hctz 10-12.5 mg Tab] Gabapentin 300 mg PO BID 04/05/19 HYDROmorphone HCL [Hydromorphone 0.5 ml PO QID 04/05/19 HCl] Olanzapine [Olanzapine Odt] 5 mg PO BID 04/05/19 Sennosides [Senna] 8.6 mg PO HS 04/05/19 clonazePAM [Klonopin -] 0.5 mg PO HS 04/05/19 ASSESSMENT/PLAN: 68 year old male with history of HTN, 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 No HI. Episode was witnessed by his and lasted seconds. No Hx of Seizure Disorder. 1. Syncope - Seizure vs adverse reaction/hypotension due to hydromorphone CT Head - white matter changes, no acute infarct. Telemonitoring/Orthostatic Vitals. Echo Carotid Duplex MRI to exclude mets - discontinued by Neurology. PT Neuro eval - recommend out-patient EEG. 2. Thrmobocytopenia ? sec to CTx recently received. No bruising/bleeding. Will monitor. Spleen normal in size with homogenous echotexture on Abdo US. 3. HTN- Continue Lisinopril. Hold HCTZ. 4. Insomnia - Takes Gapapentin and Clonazepam at night. 5. Chronic constipation - reumed on Senna. 6 On Olanzapine - will need to clarify Psychiatry diagnosis with his . Will continue. 7. Hypokalemia - will replete. DVT Px - Heparin SQ Visit type - Emergency Visit Emergency Visit: Yes ED Registration Date: 04/05/19 Care time: The patient presented to the Emergency Department on the above date and was hospitalized for further evaluation of their emergent condition. - New Patient This patient is new to me today: Yes Date on this admission: 04/06/19 - Critical Care Critical Care patient: No - Discharge Referral Referred to [facility] Med P.C.: No
[2019-04-06] MEDS: SENNOSIDES 8.6MG TABLET (FP) PO SCH (21:27)
[2019-04-06] MEDS: diphenhydrAMINE HCL 25 MG CAPSULE (FP) PO SCH (21:27)
[2019-04-06] MEDS: GABAPENTIN 300 MG CAPSULE (FP) PO SCH (21:27)
[2019-04-06] MEDS ORDERED: clonazePAM 0.5 MG TABLET PO SCH (22:00)
[2019-04-06] MEDS ORDERED: MELATONIN 5 MG TABLETS PO SCH (22:00)
[2019-04-07] MEDS: guaiFENesin 200 MG/10 ML 10 ML UNIT-DOSE CUPS PO PRN (06:13)
[2019-04-07] MEDS: HEPARIN NA (PORCINE) 5,000 UNITS/ML 1ML VIAL SQ SCH ×2 (06:13→21:00)
[2019-04-07 09:59] LABS: BASO % 0.4 % (0-2.0); EOS % 1.9 % (0-4.5); HEMATOCRIT 40.5 % (35.4-49); HEMOGLOBIN 14.2 GM/dL (11.7-16.9); LYMPH % 13.1 % (8-40); MCH 36.4 pg (25.7-33.7); MCHC 35.1 g/dl (32.0-35.9); MEAN CELL VOLUME 103.7 fl (80-96); MEAN PLT VOLUME 8.1 fl (7.5-11.1); MONO % 8.9 % (3.8-10.2); NEUT % 75.7 % (42.8-82.8); PLATELET COUNT 90 K/MM3 (134-434); RDW 17.4 % (11.9-15.9)
[2019-04-07] MEDS ORDERED: HYDROCHLOROTHIAZIDE 12.5 MG CAPSULE (FP) PO SCH (10:00)
[2019-04-07 10:23] LABS: BLOOD UREA NITROGEN 14.1 mg/dL (7-18); CALCIUM 8.5 mg/dL (8.5-10.1); CREATININE 0.8 mg/dL (0.55-1.3); POTASSIUM 3.6 mmol/L (3.5-5.1)
[2019-04-07] MEDS: GABAPENTIN 300 MG CAPSULE (FP) PO SCH ×2 (10:39→21:00)
[2019-04-07] MEDS: LISINOPRIL 10 MG TABLET (FP) PO SCH (10:39)
--- NOTE | 2019-04-07 10:59 | PN ---
Progress Note (short form) - Note Progress Note: Neurology CHIEF COMPLAINT: presyncope/leg weakness PCP: Dr. 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 at bedside during encounter. Pt has had a year long hx of cancer treatment after which his most recent oral chemotherapy caused him to feel very weak and sick. As a result, he decided yesterday to be placed on palliative care and was given a new medication regimen today. Pt was prescribed Hydromorphone 0.5 mL, but took 0.25 ml. 2 hours later, while brushing his teeth, pt started feeling b/l leg weakness and tremors, R > L, and became too weak to hold himself up. was present during entire episode and was able to hold pt up. Pt did admit to some dizziness, but denied associated nausea/vomiting, chest pain, sob, loss of consciousness, seizure activity or post-ictal state. Denies any fall. Pt also has R sided facial flushing. Patient BUN decreased to within normal range 14. EKG normal sinus rhythm. Head CT completed with moderate to marked periventricular and subcortical white matter and small amount of fluid mucosal thickening within the mastoid air cells bilaterally. Patient without focal deficits and therefore discontinued MRI brain. Discussed with at bedside and hospitalist. EEG may be of benefit but not available on weekend, therefore provided office information to expedite completion as outpatient. Neurologically appears at baseline and hydromorphone first use likely etiology to presentation. Discussed with resident and echo likely for tomorrow and then further disposition to be considered thereafter. Reviewed abdominal ultrasound fatty liver disease mentioned defer to primary team. Active Medications Acetaminophen (Tylenol -) 650 mg PO Q6H PRN PRN Reason: PAIN LEVEL 1-5 Last Admin: 04/06/19 13:41 Dose: 650 mg Diphenhydramine HCl (Benadryl -) 25 mg PO HS [facility] Last Admin: 04/06/19 21:27 Dose: 25 mg Gabapentin (Neurontin -) 300 mg PO BID [facility] Last Admin: 04/07/19 10:39 Dose: 300 mg Guaifenesin (Robitussin -) 10 ml PO Q8H PRN PRN Reason: COUGH Last Admin: 04/07/19 06:13 Dose: 10 ml Heparin Sodium (Porcine) (Heparin -) 5,000 unit SQ TID [facility] Last Admin: 04/07/19 06:13 Dose: 5,000 unit Lisinopril (Prinivil) 10 mg PO DAILY [facility] Last Admin: 04/07/19 10:39 Dose: 10 mg Senna (Senna -) 1 tab PO HS [facility] Last Admin: 04/06/19 21:27 Dose: 1 tab PHYSICAL EXAMINATION Vital Signs Period Temp Pulse Resp BP Sys/Schmidt Pulse Ox Last 24 Hr 97.4 F-98.6 F 60-85 18-20 118-130/77-84 95-95 GENERAL: Pleasant, male. NAD. AAOx3. HEENT: AT/NC. EOMI. No facial droop. R sided facial flushing, no warmth. Airway patent. NECK: Normal range of motion, supple without lymphadenopathy, JVD, or masses. LUNGS: CTA B/L. No wheezes/rales noted. Symmetric chest rise. HEART: RRR. Normal S1, S2. No murmurs noted. ABDOMEN: Soft, nontender, not distended, normoactive bowel sounds, no guarding, no rebound, no masses. No hepatomegaly or splenomegaly. MUSCULOSKELETAL: 5/5 muscle strength in LUE and b/l LE UPPER EXTREMITIES: R arm amputation. 2+ L sided radial pulse. Uses 1 crutch to ambulate. LOWER EXTREMITIES: 2+ pulses, warm, well-perfused. No calf tenderness. No peripheral edema. 5/5 muscle strength in b/l hip and knee flexion and extension. NEUROLOGICAL: Cranial nerves II-XII intact. Normal speech. Answers all questions appropriately. Moves all ext, RUE amputation, sensory intact PSYCHIATRIC: Cooperative. Good eye contact. Appropriate mood and affect. SKIN: Warm, dry, normal turgor, no rashes or lesions noted, normal capillary refill. CBCD WBC 4.0 K/mm3 (4.0-10.0) 04/07/19 09:30 RBC 3.90 M/mm3 (4.00-5.60) L 04/07/19 09:30 Hgb 14.2 GM/dL (11.7-16.9) 04/07/19 09:30 Hct 40.5 % (35.4-49) 04/07/19 09:30 MCV 103.7 fl (80-96) H 04/07/19 09:30 MCHC 35.1 g/dl (32.0-35.9) 04/07/19 09:30 RDW 17.4 % (11.9-15.9) H 04/07/19 09:30 Plt Count 90 K/MM3 (134-434) L 04/07/19 09:30 MPV 8.1 fl (7.5-11.1) 04/07/19 09:30 CMP Sodium 146 mmol/L (136-145) H 04/07/19 09:30 Potassium 3.6 mmol/L (3.5-5.1) 04/07/19 09:30 Chloride 112 mmol/L (98-107) H 04/07/19 09:30 Carbon Dioxide 26 mmol/L (21-32) 04/07/19 09:30 Anion Gap 8 MMOL/L (8-16) 04/07/19 09:30 BUN 14.1 mg/dL (7-18) 04/07/19 09:30 Creatinine 0.8 mg/dL (0.55-1.3) 04/07/19 09:30 Random Glucose 118 mg/dL (74-106) H 04/07/19 09:30 Calcium 8.5 mg/dL (8.5-10.1) 04/07/19 09:30 Total Bilirubin 0.7 mg/dL (0.2-1) 04/06/19 05:53 AST 24 U/L (15-37) 04/06/19 05:53 ALT 37 U/L (13-61) 04/06/19 05:53 Alkaline Phosphatase 68 U/L (45-117) 04/06/19 05:53 Total Protein 5.5 g/dl (6.4-8.2) L 04/06/19 05:53 Albumin 3.1 g/dl (3.4-5.0) L 04/06/19 05:53 CARDIAC ENZYMES Creatine Kinase 128 U/L (26-308) 04/05/19 15:50 Troponin I < 0.02 ng/ml (0.00-0.05) 04/05/19 15:50 ASSESSMENT/PLAN: 68M w/ 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 at bedside during encounter. Pt has had a year long hx of cancer treatment after which his most recent oral chemotherapy caused him to feel very weak and sick. As a result, he decided yesterday to be placed on palliative care and was given a new medication regimen today. Pt was prescribed Hydromorphone 0.5 mL, but took 0.25 ml. 2 hours later, while brushing his teeth, pt started feeling b/l leg weakness and tremors, R > L, and became too weak to hold himself up. was present during entire episode and was able to hold pt up. Pt did admit to some dizziness, but denied associated nausea/vomiting, chest pain, sob, loss of consciousness, seizure activity or post-ictal state. Denies any fall. Pt also has R sided facial flushing. Patient BUN decreased to within normal range 14.1, EKG normal sinus rhythm. Head CT completed with moderate to marked periventricular and subcortical white matter and small amount of fluid mucosal thickening within the mastoid air cells bilaterally. Patient without focal deficits and therefore discontinued MRI brain. Discussed with at bedside and hospitalist. EEG may be of benefit but not available on weekend, therefore provided office information to expedite completion as outpatient. Discussed with resident and echo likely for tomorrow and then further disposition to be considered thereafter. Reviewed abdominal ultrasound fatty liver disease mentioned defer to primary team. Neurologically appears at baseline and hydromorphone first use likely etiology to presentation. Cardiac work up as per primary. Monitor BP, maintain normotensive range. Adequate hydration recommended. Caution with opioid medications and use. Follow up with oncologist. DVT ppx.
[2019-04-07] MEDS: OLANZAPINE 5 MG PO SCH (11:08)
--- NOTE | 2019-04-07 11:10 | PN ---
Teaching Attending Note Name of Resident: Petar Heart ATTENDING PHYSICIAN STATEMENT I saw and evaluated the patient. I reviewed the resident's note and discussed the case with the resident. I agree with the resident's findings and plan as documented. SUBJECTIVE: Feels well - no headache/visual disturbance/lightheadedness. No limb numbness/tingling/weakness. No fever/chills. Tolerating oral intake. no further LOC/shaking episodes. OBJECTIVE: Afebrile, Hemodynamically Stable. Last Vital Signs Temp Pulse Resp BP Pulse Ox 97.4 F L 85 20 118/77 95 04/07/19 10:43 04/07/19 10:43 04/07/19 10:43 04/07/19 10:43 04/07/19 06:00 Heart - S1, S2, RRR Lungs - clear to auscultation Abdomen - Soft, non-tender. Bowel Sounds normal. Extremities - RUE amputation. No LE edema/calf tenderness. Neuro - AAO x 3. Tone/Power normal LUE and bilateral LEs. Laboratory Results - last 24 hr 04/07/19 04/07/19 04/07/19 09:30 09:30 09:30 WBC 4.0 RBC 3.90 L Hgb 14.2 Hct 40.5 MCV 103.7 H MCH 36.4 H MCHC 35.1 RDW 17.4 H Plt Count 90 L MPV 8.1 Absolute Neuts (auto) 3.0 Neutrophils % 75.7 Lymphocytes % 13.1 D Monocytes % 8.9 Eosinophils % 1.9 D Basophils % 0.4 Nucleated RBC % 0 Sodium 146 H Potassium 3.6 Chloride 112 H Carbon Dioxide 26 Anion Gap 8 BUN 14.1 Creatinine 0.8 Est GFR (CKD-EPI)AfAm 107.89 Est GFR (CKD-EPI)NonAf 93.09 Random Glucose 118 H Calcium 8.5 Vitamin B12 392 Serum Folate 12 Current Medications Generic Name Dose Route Start Last Admin Trade Name Freq PRN Reason Stop Dose Admin Acetaminophen 650 mg 04/05/19 23:31 04/06/19 13:41 Tylenol - PO 650 mg Q6H PRN Administration PAIN LEVEL 1-5 Diphenhydramine HCl 25 mg 04/06/19 22:00 04/06/19 21:27 Benadryl - PO 25 mg HS JULIUS Administration Gabapentin 300 mg 04/06/19 22:00 04/07/19 10:39 Neurontin - PO 300 mg BID JULIUS Administration Guaifenesin 10 ml 04/06/19 11:46 04/07/19 06:13 Robitussin - PO 10 ml Q8H PRN Administration COUGH Heparin Sodium (Porcine) 5,000 unit 04/05/19 23:15 04/07/19 06:13 Heparin - SQ 5,000 unit TID JULIUS Administration Lisinopril 10 mg 04/07/19 10:00 04/07/19 10:39 Prinivil PO 10 mg DAILY JULIUS Administration Senna 1 tab 04/06/19 22:00 04/06/19 21:27 Senna - PO 1 tab HS JULIUS Administration Home Medications Medication Instructions Recorded Lisinopril/Hydrochlorothiazide 1 each PO DAILY 10/11/17 [Lisinopril-Hctz 10-12.5 mg Tab] Gabapentin 300 mg PO BID 04/05/19 HYDROmorphone HCL [Hydromorphone 0.5 ml PO QID 04/05/19 HCl] Olanzapine [Olanzapine Odt] 5 mg PO BID 04/05/19 Sennosides [Senna] 8.6 mg PO HS 04/05/19 clonazePAM [Klonopin -] 0.5 mg PO HS 04/05/19 ASSESSMENT/PLAN: 68 year old male with history of HTN, 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 No HI. Episode was witnessed by his and lasted seconds. No Hx of Seizure Disorder. 1. Syncope - Seizure vs adverse reaction/hypotension due to hydromorphone CT Head - white matter changes, no acute infarct. Telemonitoring/Orthostatic Vitals negative Echo pending MRI to exclude mets - discontinued by Neurology. Neuro eval - recommend out-patient EEG and Neuro follow up. PT 2. Thrmobocytopenia ? sec to CTx recently received - improving No bruising/bleeding. Will monitor. Spleen normal in size with homogenous echotexture on Abdo US. 3. HTN - Continue Lisinopril. Hold HCTZ. 4. Insomnia - Takes Gapapentin, Benadryl, and Clonazepam at night. 5. Chronic constipation - resumed on Senna. 6 Prescribed Olanzapine but never used it - reason unclear. Psychiatrically sound. No psychosis. and patient hesitant to use it. 7. Hypokalemia - repleted. 8. 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 9. Macrocytosis ?sec to CTx - B12 level borderline. Will supplement. DVT Px - Heparin SQ cautiously due to borderline low Plts.
--- NOTE | 2019-04-07 11:23 | PN ---
Physical Exam: SUBJECTIVE: Patient seen and examined at the bedside. Patient stated that he is doing well. Complained of constipation, mild headache, chronic numbness from neuropathy in the legs, and chronic cough. Denied focal weakness, dizziness, lightheadedness, cp, sob, abd pain, n/v, fever, chills. OBJECTIVE: Vital Signs Period Temp Pulse Resp BP Sys/Schmidt Pulse Ox Last 24 Hr 97.4 F-98.6 F 60-85 18-20 118-130/77-84 95-95 GENERAL: The patient is awake, alert, and fully oriented, in no acute distress. HEAD: Normal with no signs of trauma. EYES: PERRL, extraocular movements intact, sclera anicteric, conjunctiva clear. ENT: Oropharynx clear without exudates, moist mucous membranes. NECK: Trachea midline, full range of motion, supple. LUNGS: Breath sounds equal, clear to auscultation bilaterally, no wheezes, no crackles, no accessory muscle use. HEART: Regular rate and rhythm, S1, S2 without murmur, rub. ABDOMEN: Soft, nontender, nondistended, normoactive bowel sounds, no guarding, no rebound, no masses. EXTREMITIES: RUE amputation. Other extremities intact with 2+ pulses and no edema. No calf tenderness. NEUROLOGICAL: Cranial nerves II through XII grossly intact. 4/5 Muscle strength of bilateral legs. Decreased sensation on soles of feet bilaterally. PSYCH: Normal mood, normal affect. SKIN: Warm, dry, normal turgor, no rashes or lesions noted Laboratory Results - last 24 hr 04/07/19 04/07/19 04/07/19 09:30 09:30 09:30 WBC 4.0 RBC 3.90 L Hgb 14.2 Hct 40.5 MCV 103.7 H MCH 36.4 H MCHC 35.1 RDW 17.4 H Plt Count 90 L MPV 8.1 Absolute Neuts (auto) 3.0 Neutrophils % 75.7 Lymphocytes % 13.1 D Monocytes % 8.9 Eosinophils % 1.9 D Basophils % 0.4 Nucleated RBC % 0 Sodium 146 H Potassium 3.6 Chloride 112 H Carbon Dioxide 26 Anion Gap 8 BUN 14.1 Creatinine 0.8 Est GFR (CKD-EPI)AfAm 107.89 Est GFR (CKD-EPI)NonAf 93.09 Random Glucose 118 H Calcium 8.5 Vitamin B12 392 Serum Folate 12 Active Medications Generic Name Dose Route Start Last Admin Trade Name Freq PRN Reason Stop Dose Admin Acetaminophen 650 mg 04/05/19 23:31 04/06/19 13:41 Tylenol - PO 650 mg Q6H PRN Administration PAIN LEVEL 1-5 Cyanocobalamin 1,000 mcg 04/07/19 11:30 Vitamin B12 - PO DAILY JULIUS Diphenhydramine HCl 25 mg 04/06/19 22:00 04/06/19 21:27 Benadryl - PO 25 mg HS JULIUS Administration Gabapentin 300 mg 04/06/19 22:00 04/07/19 10:39 Neurontin - PO 300 mg BID JULIUS Administration Guaifenesin 10 ml 04/06/19 11:46 04/07/19 06:13 Robitussin - PO 10 ml Q8H PRN Administration COUGH Heparin Sodium (Porcine) 5,000 unit 04/07/19 22:00 Heparin - SQ BID JULIUS Lisinopril 10 mg 04/07/19 10:00 04/07/19 10:39 Prinivil PO 10 mg DAILY JULIUS Administration Senna 1 tab 04/06/19 22:00 04/06/19 21:27 Senna - PO 1 tab HS JULIUS Administration ASSESSMENT/PLAN: Fritz Peng is a 68 male with a past medical history of R arm sarcoma (s/p RUE amputation) with lung mets (previously treated with RT, oral CT), HTN, presents to the ED for b/l leg weakness. B/L LE weakness - likely secondary to adverse drug reaction from hydromorphone vs. near syncope - Head CT showed no acute IC pathology. Mod to marked periventricular and subcortical white matter hypodensity; may be advanced microvascular ischemic gliosis or nonspecific white matter injury, probably chronic. Small amount of fluid/mucosal thickening seen within mastoid air cells b/l. - hold all opioids for now - Orthostatics negative - Echo ordered - Fall/seizure precautions - PT eval - Neuro consulted, recs appreciated, caution with opioids, ensure adequate hydration, EEG as outpatient - Avoid hydromorphone; Will need close outpatient follow up with palliative care physician to discuss different palliative care regimen - Tylenol PRN for pain - will need to follow up with oncology outpatient Mild Thrombocytopenia - likely a side effect of recent chemotherapy - Abd U/s with no evidence of splenomegaly. showing mild fatty liver vs hepatocellular disease - liver function tests within normal limits, can follow up outpatient HTN - resume lisinopril - hold HCTZ Macrocytosis - likely in setting of chemotherapy - B12 borderline low, supplementation initiated Insomnia - benadryl Neuropathy - on gabapentin Constipation - on senna Prophylaxis - heparin 5000 units subq bid FEN - no standing fluids, encourage PO intake - continue to monitor electrolytes and replete as necessary - sodium-controlled diet Code status -DNI, discussion to occur regarding the futility of DNI but not DNR Dispo - continue to monitor on telemetry - will need to follow up with oncology and palliative care outpatient continued care of sarcoma with mets Visit type - Emergency Visit Emergency Visit: Yes ED Registration Date: 04/05/19 Care time: The patient presented to the Emergency Department on the above date and was hospitalized for further evaluation of their emergent condition. - New Patient This patient is new to me today: Yes Date on this admission: 04/07/19 - Critical Care Critical Care patient: No
[2019-04-07] MEDS: CYANOCOBALAMIN 1,000 MCG TABLET (FP) PO SCH (14:32)
[2019-04-07] MEDS: SENNOSIDES 8.6MG TABLET (FP) PO SCH (21:00)
[2019-04-07] MEDS ORDERED: HEPARIN NA (PORCINE) 5,000 UNITS/ML 1ML VIAL SQ SCH (22:00)
[2019-04-07] MEDS: diphenhydrAMINE HCL 25 MG CAPSULE (FP) PO SCH (22:45)
[2019-04-08 07:22] LABS: CALCIUM 8.4 mg/dL (8.5-10.1); CREATININE 0.8 mg/dL (0.55-1.3); POTASSIUM 3.6 mmol/L (3.5-5.1)
--- NOTE | 2019-04-08 08:58 | PN ---
Progress Note (short form) - Note Progress Note: Neurology CHIEF COMPLAINT: presyncope/leg weakness PCP: Dr. Rick (palliative care) - [phone] HISTORY OF PRESENT ILLNESS: 68M w/ 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 at bedside during encounter. Pt has had a year long hx of cancer treatment after which his most recent oral chemotherapy caused him to feel very weak and sick. As a result, he decided yesterday to be placed on palliative care and was given a new medication regimen today. Pt was prescribed Hydromorphone 0.5 mL, but took 0.25 ml. 2 hours later, while brushing his teeth, pt started feeling b/l leg weakness and tremors, R > L, and became too weak to hold himself up. was present during entire episode and was able to hold pt up. Pt did admit to some dizziness, but denied associated nausea/vomiting, chest pain, sob, loss of consciousness, seizure activity or post-ictal state. Denies any fall. Pt also has R sided facial flushing. Patient BUN decreased to within normal range 14. EKG normal sinus rhythm. Head CT completed with moderate to marked periventricular and subcortical white matter and small amount of fluid mucosal thickening within the mastoid air cells bilaterally. Patient without focal deficits and therefore discontinued MRI brain. Discussed with at bedside and hospitalist on admission. EEG may be of benefit but not available on weekend, therefore provided office information to expedite completion as outpatient. Neurologically appears at baseline and hydromorphone first use likely etiology to presentation. Discussed with resident and echo likely for tomorrow and then further disposition to be considered thereafter. Reviewed abdominal ultrasound fatty liver disease mentioned defer to primary team. Awaiting echo completion, possibly for today. Patient also reports some difficulty with ambulation and may require physical therapy/short-term rehabilitation. Active Medications Acetaminophen (Tylenol -) 650 mg PO Q6H PRN PRN Reason: PAIN LEVEL 1-5 Last Admin: 04/06/19 13:41 Dose: 650 mg Cyanocobalamin (Vitamin B12 -) 1,000 mcg PO DAILY JULIUS Last Admin: 04/07/19 14:32 Dose: 1,000 mcg Diphenhydramine HCl (Benadryl -) 25 mg PO HS [facility] Last Admin: 04/07/19 22:45 Dose: 25 mg Gabapentin (Neurontin -) 300 mg PO BID [facility] Last Admin: 04/07/19 21:00 Dose: 300 mg Guaifenesin (Robitussin -) 10 ml PO Q8H PRN PRN Reason: COUGH Last Admin: 04/07/19 06:13 Dose: 10 ml Heparin Sodium (Porcine) (Heparin -) 5,000 unit SQ BID [facility] Last Admin: 04/07/19 21:00 Dose: 5,000 unit Lisinopril (Prinivil) 10 mg PO DAILY [facility] Last Admin: 04/07/19 10:39 Dose: 10 mg Senna (Senna -) 1 tab PO HS [facility] Last Admin: 04/07/19 21:00 Dose: 1 tab PHYSICAL EXAMINATION Vital Signs Period Temp Pulse Resp BP Sys/Schmidt Pulse Ox Last 24 Hr 97.4 F-98.4 F 68-105 20-20 106-142/53-86 95-95 GENERAL: Pleasant, male. NAD. AAOx3. HEENT: AT/NC. EOMI. No facial droop. R sided facial flushing, no warmth. Airway patent. NECK: Normal range of motion, supple without lymphadenopathy, JVD, or masses. LUNGS: CTA B/L. No wheezes/rales noted. Symmetric chest rise. HEART: RRR. Normal S1, S2. No murmurs noted. ABDOMEN: Soft, nontender, not distended, normoactive bowel sounds, no guarding, no rebound, no masses. No hepatomegaly or splenomegaly. MUSCULOSKELETAL: 5/5 muscle strength in LUE and b/l LE UPPER EXTREMITIES: R arm amputation. 2+ L sided radial pulse. Uses 1 crutch to ambulate. LOWER EXTREMITIES: 2+ pulses, warm, well-perfused. No calf tenderness. No peripheral edema. 5/5 muscle strength in b/l hip and knee flexion and extension. NEUROLOGICAL: Cranial nerves II-XII intact. Normal speech. Answers all questions appropriately. Moves all ext, RUE amputation, sensory intact PSYCHIATRIC: Cooperative. Good eye contact. Appropriate mood and affect. SKIN: Warm, dry, normal turgor, no rashes or lesions noted, normal capillary refill. CBCD WBC 4.0 K/mm3 (4.0-10.0) 04/07/19 09:30 RBC 3.90 M/mm3 (4.00-5.60) L 04/07/19 09:30 Hgb 14.2 GM/dL (11.7-16.9) 04/07/19 09:30 Hct 40.5 % (35.4-49) 04/07/19 09:30 MCV 103.7 fl (80-96) H 04/07/19 09:30 MCHC 35.1 g/dl (32.0-35.9) 04/07/19 09:30 RDW 17.4 % (11.9-15.9) H 04/07/19 09:30 Plt Count 90 K/MM3 (134-434) L 04/07/19 09:30 MPV 8.1 fl (7.5-11.1) 04/07/19 09:30 CMP Sodium 145 mmol/L (136-145) 04/08/19 05:50 Potassium 3.6 mmol/L (3.5-5.1) 04/08/19 05:50 Chloride 113 mmol/L (98-107) H 04/08/19 05:50 Carbon Dioxide 25 mmol/L (21-32) 04/08/19 05:50 Anion Gap 7 MMOL/L (8-16) L 04/08/19 05:50 BUN 15.0 mg/dL (7-18) 04/08/19 05:50 Creatinine 0.8 mg/dL (0.55-1.3) 04/08/19 05:50 Random Glucose 78 mg/dL (74-106) 04/08/19 05:50 Calcium 8.4 mg/dL (8.5-10.1) L 04/08/19 05:50 Total Bilirubin 0.7 mg/dL (0.2-1) 04/06/19 05:53 AST 24 U/L (15-37) 04/06/19 05:53 ALT 37 U/L (13-61) 04/06/19 05:53 Alkaline Phosphatase 68 U/L (45-117) 04/06/19 05:53 Total Protein 5.5 g/dl (6.4-8.2) L 04/06/19 05:53 Albumin 3.1 g/dl (3.4-5.0) L 04/06/19 05:53 CARDIAC ENZYMES Creatine Kinase 128 U/L (26-308) 04/05/19 15:50 Troponin I < 0.02 ng/ml (0.00-0.05) 04/05/19 15:50 ASSESSMENT/PLAN: 68M w/ 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 at bedside during encounter. Pt has had a year long hx of cancer treatment after which his most recent oral chemotherapy caused him to feel very weak and sick. As a result, he decided yesterday to be placed on palliative care and was given a new medication regimen today. Pt was prescribed Hydromorphone 0.5 mL, but took 0.25 ml. 2 hours later, while brushing his teeth, pt started feeling b/l leg weakness and tremors, R > L, and became too weak to hold himself up. was present during entire episode and was able to hold pt up. Pt did admit to some dizziness, but denied associated nausea/vomiting, chest pain, sob, loss of consciousness, seizure activity or post-ictal state. Denies any fall. Pt also has R sided facial flushing. Patient BUN decreased to within normal range 14.1, EKG normal sinus rhythm. Head CT completed with moderate to marked periventricular and subcortical white matter and small amount of fluid mucosal thickening within the mastoid air cells bilaterally. Patient without focal deficits and therefore discontinued MRI brain. Discussed with at bedside and hospitalist. EEG may be of benefit but not available on weekend, therefore provided office information to expedite completion as outpatient. Discussed with resident and echo likely for tomorrow and then further disposition to be considered thereafter. Reviewed abdominal ultrasound fatty liver disease mentioned defer to primary team. Neurologically appears at baseline and hydromorphone first use likely etiology to presentation. Cardiac work up as per primary. Monitor BP, maintain normotensive range. Adequate hydration recommended. Caution with opioid medications and use. Awaiting echo completion, possibly for today. Patient also reports some difficulty with ambulation and may require physical therapy/short-term rehabilitation. Follow up with oncologist. DVT ppx.
[2019-04-08] MEDS: HEPARIN NA (PORCINE) 5,000 UNITS/ML 1ML VIAL SQ SCH (10:38)
[2019-04-08] MEDS: CYANOCOBALAMIN 1,000 MCG TABLET (FP) PO SCH (10:38)
[2019-04-08] MEDS: guaiFENesin 200 MG/10 ML 10 ML UNIT-DOSE CUPS PO PRN (10:38)
[2019-04-08] MEDS: LISINOPRIL 10 MG TABLET (FP) PO SCH (10:38)
[2019-04-08] MEDS: GABAPENTIN 300 MG CAPSULE (FP) PO SCH (10:39)
[2019-04-08 14:37] VITALS: BP 131/61; PULSE 106; TEMP 98.2
--- NOTE | 2019-04-08 16:11 | DS ---
Physical Exam: SUBJECTIVE: Patient seen and examined at the bedside. Noted that he is doing well and feels stronger today. Endorses good appetite. Denies any symptoms of cp , sob, abd pain, n/v/c/d, fever, chills, headaches, dizziness, lightheadedness, numbness, tingling, weakness. OBJECTIVE: Vital Signs Period Temp Pulse Resp BP Sys/Schmidt Pulse Ox Last 24 Hr 97.6 F-98.4 F 68-106 18-20 106-146/53-83 93-95 PHYSICAL EXAM GENERAL: The patient is awake, alert, and fully oriented, in no acute distress. HEAD: Normal with no signs of trauma. EYES: PERRL, extraocular movements intact, sclera anicteric, conjunctiva clear. ENT: Oropharynx clear without exudates, moist mucous membranes. NECK: Trachea midline, full range of motion, supple. LUNGS: Breath sounds equal, clear to auscultation bilaterally, no wheezes, no crackles, no accessory muscle use. HEART: Regular rate and rhythm, S1, S2 without murmur, rub. ABDOMEN: Soft, nontender, nondistended, normoactive bowel sounds, no guarding, no rebound, no masses. EXTREMITIES: RUE amputation. Other extremities intact with 2+ pulses and no edema. No calf tenderness. NEUROLOGICAL: Cranial nerves II through XII grossly intact. 4/5 Muscle strength of bilateral legs. Decreased sensation on soles of feet bilaterally. PSYCH: Normal mood, normal affect. SKIN: Warm, dry, normal turgor, no rashes or lesions noted LABS Laboratory Results - last 24 hr 04/08/19 05:50 Sodium 145 Potassium 3.6 Chloride 113 H Carbon Dioxide 25 Anion Gap 7 L BUN 15.0 Creatinine 0.8 Est GFR (CKD-EPI)AfAm 107.89 Est GFR (CKD-EPI)NonAf 93.09 Random Glucose 78 Calcium 8.4 L HOSPITAL COURSE: Fritz Peng is a 68 male with a past medical history of R arm sarcoma (s/p RUE amputation) with lung mets (previously treated with RT, oral CT), HTN, admitted for syncope workup. Head CT showed no acute IC pathology. Mod to marked periventricular and subcortical white matter hypodensity; may be advanced microvascular ischemic gliosis or nonspecific white matter injury, probably chronic. Small amount of fluid/mucosal thickening seen within mastoid air cells b/l. Orthostatics were done and were negative. Neurology was consulted and recommended to discontinue opioids and patient to speak with his palliative care physician to pick a different pain management regimen. Echo was performed which showed EF 60-65%, mild mitral regurg, mild aortic sclerosis. Patient was recommended to have an EEG as outpatient. While hospitalized, patient was noted to have mild thrombocytopenia which was likely due to chemotherapy. Abd U/S was performed which showed mild fatty liver vs hepatocellular disease. Patient advised to follow up outpatient for repeat CBC and to have GI outpatient follow up. Advised to follow up with his primary care physician, palliative care physician , neurologist, and robot designer. Patient was advised to stop taking hydromorphone and to stop taking hydrochlorothiazide. Patient to continue taking lisinopril. Family stated that they would like to return home to continue their care when medically clear without a subacute rehab. Advised to follow up with his palliative care doctor for pain managament alternatives. Patient was advised of the plan, agreed to it, and reiterated it. Patient was discharged in stable medical condition. Date of Admission:04/05/19 Date of Discharge: 04/08/19 Minutes to complete discharge: 35 Discharge Summary Problems reviewed: Yes Reason For Visit: SYNCOPE, LUNG CA Condition: Improved - Instructions Diet, Activity, Other Instructions: You were admitted after having an episode of weakness of your legs. You had a head CT performed which showed some abnormal chronic changes in your brain but nothing new in the brain. You were seen by a neurologist (brain doctor) who recommended that you avoid hydromorphone pain medications, have an EEG ( electrical signal test of the brain) as an outpatient. You had an echocardiogram (ultrasound of the heart) which showed normal function of your heart and some trace valve dysfunction. You may follow up with your primary care physician for these findings. While you were here you were found to have low platelets (clotting cells of the blood) which was likely due to your recent chemotherapy. You should follow up with your primary care doctor for blood work in 1 week. You had ultrasound of the liver which showed that you had some abnormal changes in your liver for which you should follow up with a robot designer (stomach, liver, intestine doctor). MEDICATIONS STOP taking hydromorphone. Please see your oncologist and corporate communications specialist for pain control. STOP taking the combination lisinopril-hydrochlorothiazide medication. START taking lisinopril 10mg daily. Continue taking all of your other home medications as prescribed. REFERRALS Please see Dr. James Longo within 1 week. You will need to receive a Complete Blood Count blood test to assess your platelets. Please see Dr. Jamal Feliz within 1 week. You will recommendations on pain medications to avoid future weakness episodes. Please see the neurologist, Dr. Kelton Ceballos, within 1 week. Please see the robot designer, Dr. Ramón Martin, within 1 week. If you have any symptoms of chest pain, shortness of breath, dizziness, lightheadedness, fainting episodes, vomiting, or any other general feelings of unwellness, please call 911 or go to your nearest emergency room. Referrals: Jamal Feliz [Other] - 1 Week James Longo [Primary Care Provider] - 1 Week Kelton Ceballos MD [Staff Physician] - 1 Week Ramón Martin MD [Staff Physician] - 1 Week Disposition: HOME - Home Medications Comprehensive Discharge Medication List: Ambulatory Orders Lisinopril/Hydrochlorothiazide [Lisinopril-Hctz 10-12.5 mg Tab] 1 each PO DAILY 10/11/17 Gabapentin 300 mg PO BID 04/05/19 HYDROmorphone HCL [Hydromorphone HCl] 0.5 ml PO QID 04/05/19 Olanzapine [Olanzapine Odt] 10 mg PO DAILY 04/05/19 Sennosides [Senna] 8.6 mg PO HS 04/05/19 clonazePAM [Klonopin -] 0.5 mg PO HS 04/05/19 Duloxetine HCl [Cymbalta -] 20 mg PO DAILY 04/08/19 Memantine HCl 10 mg PO DAILY 04/08/19 Problem List - Problems (1) Syncope Code(s): R55 - SYNCOPE AND COLLAPSE Qualifiers: Syncope type: unspecified Qualified Code(s): R55 - Syncope and collapse This patient is new to me today: No Emergency Visit: Yes ED Registration Date: 04/05/19 Care time: The patient presented to the Emergency Department on the above date and was hospitalized for further evaluation of their emergent condition. Critical Care patient: No - Discharge Referral Referred to [facility] No
--- NOTE | 2019-04-08 16:48 | ECHO ---
Name: BRANDON ÁLVAREZ Exam:Adult Echocardiogram Study Date: 04/08/2019 02:02 PM Age: 68 yrs Height: 70 in Weight: 153 lb BSA: 1.9 m2 MMode/2D Measurements & Calculations IVSd: 1.0 cm Ao root diam: 2.2 cm LVIDd: 3.6 cm LA dimension: 2.3 cm LVIDs: 2.3 cm LVPWd: 1.1 cm LVPWs: 1.3 cm EDV(Teich): 53.1 ml ESV(Teich): 18.9 ml LVOT diam: 2.4 cm LAV (MOD-bp): 29.0 ml Doppler Measurements & Calculations MV E max kevin: 66.6 cm/sec Ao V2 max: 268.6 cm/sec MV A max kevin: 47.9 cm/sec Ao max P.3 mmHg MV E/A: 1.4 Ao V2 mean: 161.8 cm/sec MV dec time: 0.26 sec Ao mean P.8 mmHg Ao V2 VTI: 35.6 cm LUZ MARIA(V,D): 3.3 cm2 LV V1 max P.5 mmHg MR max kevin: 568.0 cm/sec LV V1 max: 196.8 cm/sec MR max P.0 mmHg TR max kevin: 207.7 cm/sec PA V2 max: 86.9 cm/sec TR max P.3 mmHg PA max P.0 mmHg Med Peak E' Kevin: 6.4 cm/sec Med E/e': 10.4 Procedure A complete two-dimensional transthoracic echocardiogram was performed (2D, M-mode, Doppler and color flow Doppler). Technically limited study. Left Ventricle The left ventricle is normal in size. Left ventricular systolic function is normal. Ejection Fraction = 60- 65%. No regional wall motion abnormalities noted. Right Ventricle The right ventricle is normal size. The right ventricular systolic function is normal. Atria The left atrial size is normal. Right atrial size is normal. Mitral Valve There is mild mitral annular calcification. There is mild mitral regurgitation. Tricuspid Valve The tricuspid valve is normal in structure and function. No tricuspid regurgitation. Aortic Valve There is mild aortic sclerosis.;. No aortic regurgitation is present. Pulmonic Valve The pulmonic valve is not well visualized. Great Vessels The aortic root is normal size. Pericardium/Pleura There is no pericardial effusion. Interpretation Summary Technically limited study The left ventricle is normal in size. Left ventricular systolic function is normal. No regional wall motion abnormalities noted. Ejection Fraction = 60-65%. The right ventricular systolic function is normal. The left atrial size is normal. Right atrial size is normal. There is mild mitral annular calcification. There is mild mitral regurgitation. There is mild aortic sclerosis. There is no pericardial effusion. Trent Henderson MD 04/08/2019 04:48 PM
--- NOTE | 2019-04-08 17:33 | PN ---
Teaching Attending Note Name of Resident: [facility] ATTENDING PHYSICIAN STATEMENT I saw and evaluated the patient. I reviewed the resident's note and discussed the case with the resident. I agree with the resident's findings and plan as documented. SUBJECTIVE: Feels better - ambulated with PT. No headache/visual disturbance/ lightheadedness. No limb numbness/tingling/weakness. No fever/chills. Tolerating oral intake. No further LOC/shaking episodes. OBJECTIVE: Afebrile, Hemodynamically Stable. Last Vital Signs Temp Pulse Resp BP Pulse Ox 98.2 F 106 H 18 131/61 93 L 04/08/19 14:00 04/08/19 14:00 04/08/19 14:00 04/08/19 14:00 04/08/19 14:00 Heart - S1, S2, RRR Lungs - clear to auscultation Abdomen - Soft, non-tender. Bowel Sounds normal. Extremities - RUE amputation. No LE edema/calf tenderness. Neuro - AAO x 3. Tone/Power normal LUE and bilateral LEs. Laboratory Results - last 24 hr 04/08/19 05:50 Sodium 145 Potassium 3.6 Chloride 113 H Carbon Dioxide 25 Anion Gap 7 L BUN 15.0 Creatinine 0.8 Est GFR (CKD-EPI)AfAm 107.89 Est GFR (CKD-EPI)NonAf 93.09 Random Glucose 78 Calcium 8.4 L Current Medications Generic Name Dose Route Start Last Admin Trade Name Freq PRN Reason Stop Dose Admin Acetaminophen 650 mg 04/05/19 23:31 04/06/19 13:41 Tylenol - PO 650 mg Q6H PRN Administration PAIN LEVEL 1-5 Cyanocobalamin 1,000 mcg 04/07/19 13:00 04/08/19 10:38 Vitamin B12 - PO 1,000 mcg DAILY JULIUS Administration Diphenhydramine HCl 25 mg 04/06/19 22:00 04/07/19 22:45 Benadryl - PO 25 mg HS JULIUS Administration Gabapentin 300 mg 04/06/19 22:00 04/08/19 10:39 Neurontin - PO 300 mg BID JULIUS Administration Guaifenesin 10 ml 04/06/19 11:46 04/08/19 10:38 Robitussin - PO 10 ml Q8H PRN Administration COUGH Heparin Sodium (Porcine) 5,000 unit 04/07/19 22:00 04/08/19 10:38 Heparin - SQ 5,000 unit BID JULIUS Administration Lisinopril 10 mg 04/07/19 10:00 04/08/19 10:38 Prinivil PO 10 mg DAILY JULIUS Administration Senna 1 tab 04/06/19 22:00 04/07/19 21:00 Senna - PO 1 tab HS JULIUS Administration Home Medications Medication Instructions Recorded Lisinopril/Hydrochlorothiazide 1 each PO DAILY 10/11/17 [Lisinopril-Hctz 10-12.5 mg Tab] Gabapentin 300 mg PO BID 04/05/19 HYDROmorphone HCL [Hydromorphone 0.5 ml PO QID 04/05/19 HCl] Olanzapine [Olanzapine Odt] 10 mg PO DAILY 04/05/19 Sennosides [Senna] 8.6 mg PO HS 04/05/19 clonazePAM [Klonopin -] 0.5 mg PO HS 04/05/19 Duloxetine HCl [Cymbalta -] 20 mg PO DAILY 04/08/19 Memantine HCl 10 mg PO DAILY 04/08/19 ASSESSMENT/PLAN: 68 year old male with history of HTN, 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 No HI. Episode was witnessed by his and lasted seconds. No Hx of Seizure Disorder. 1. Syncope - Seizure vs adverse reaction/hypotension due to hydromorphone CT Head - white matter changes, no acute infarct. Telemonitoring/Orthostatic Vitals negative Echo - normal EF MRI to exclude mets - discontinued by Neurology. Neuro eval - recommend out-patient EEG and Neuro follow up. PT eval cleared patient - recommended DC home with ongoing out-patient PT at [facility]. 2. Thrmobocytopenia ? sec to CTx recently received - improving No bruising/bleeding. Spleen normal in size with homogenous echotexture on Abdo US. 3. HTN - Continue Lisinopril. Will discontinue HCTZ given borderline BP and syncope on admission. 4. Insomnia - Takes Gapapentin, Benadryl, and Clonazepam at night. 5. Chronic constipation - resumed on Senna. 6 Prescribed Olanzapine but never used it - reason unclear. Psychiatrically sound. No psychosis. and patient hesitant to use it. 7. Hypokalemia - repleted. 8. 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 9. Macrocytosis ?sec to CTx - B12 level borderline. Supplemented. Medically and Neurologically stable for discharge. cleared for DC home by PT. Will follow with oncology/Palliative Care team and PT as out-patient.
== END 2019-04-08 18:54 | disposition home or self-care (01) ==
LOC: JER 14:20 → JERBED 17:35 → J4S 04-06 12:45
PROVIDERS: ADMIT Internal Medicine
PROC: 3E0337Z Introduction of Electrolytic and Water Balance Substance into Peripheral Vein, Percutaneous Approach (ICD-10-PCS; principal; 2019-04-05)
PROC: 3E013GC Introduction of Other Therapeutic Substance into Subcutaneous Tissue, Percutaneous Approach (ICD-10-PCS; 2019-04-05)
DX: R55 Syncope and collapse (principal); I10 Essential (primary) hypertension; N40.0 Benign prostatic hyperplasia without lower urinary tract symptoms; D69.6 Thrombocytopenia, unspecified; G47.00 Insomnia, unspecified; D75.89 Other specified diseases of blood and blood-forming organs; T40.2X1A Poisoning by other opioids, accidental (unintentional), initial encounter; Y92.9 Unspecified place or not applicable; C78.00 Secondary malignant neoplasm of unspecified lung; K59.00 Constipation, unspecified; E87.6 Hypokalemia; G62.9 Polyneuropathy, unspecified; Z89.201 Acquired absence of right upper limb, unspecified level; R53.1 Weakness; Z85.46 Personal history of malignant neoplasm of prostate; Z85.831 Personal history of malignant neoplasm of soft tissue; Z92.21 Personal history of antineoplastic chemotherapy; Z90.79 Acquired absence of other genital organ(s)
CPT/HCPCS: 36415; 70450-TC; 76700-TC; 80048; 80053; 82550; 82607; 82746; 83735; 84484; 85025; 85027; 93005; 93010; 93306-TC; 96372; 97116-GP; 97162-GP; 99285-25; G0378; J1644; J7030